=== PATIENT | female | born 1985 | race African-American/Black ===

== ENCOUNTER 2017-12-30 21:24 | Inpatient (IN) | payer MEDICARE ==
[~2017-12-30] VITALS: Ht 167.6 cm; Wt 99.8 kg
--- NOTE | ~2017-12-30 | OP ---
PATIENT NAME: NANCY AVILES MEDICAL RECORD: [id number] LOCATION:[id number] ADMISSION DATE:12/31/17 SURGEON: ANOOP ACUNA MD DATE OF OPERATION: 01/01/2018 PREOPERATIVE DIAGNOSES: 1. Acute appendicitis with abscess. 2. Chronic iron deficiency anemia POSTOPERATIVE DIAGNOSES: PROCEDURE: Laparoscopic appendectomy. SURGEON: Anoop Acuna MD REPORT OF PROCEDURE: The patient's abdomen was prepped and draped in sterile fashion. A cutdown was made on the superior aspect of the umbilicus. 0 Vicryls were placed in the fascia bilaterally and the fascia was incised with a 15-blade. I then bluntly entered the peritoneal cavity and placed a 12-mm Candy port. Under direct visualization, a 5 mm trocar was placed in the left lower quadrant and another was placed in the suprapubic region. The patient had a lot inflammatory changes present in the right lower quadrant. With gentle dissection, I was able to tease these off and were eventually opened up into a small pocket of pus, which was suctioned out and irrigated before there is any spillage. The patient's appendiceal base could be followed down to this inflammation. We eventually were able to dissect this appendix free from the surrounding tissues, which included the right ovary and fallopian tube along with the superior aspect of the rectum. Once we had it mobilized and a window was made at the mesoappendix and base of the appendix was transected at the cecum with a 45 blue load Endo-JAMES stapler. The mesoappendix was then transected with a 45 blue load Endo GI stapler and the appendix was placed into an Endo Catch bag. The area was irrigated out thoroughly with normal saline and care was taken to assure there is no sign of any active bleeding, which there was none. At this point, the insufflation and the appendix were removed. The periumbilical fascia was closed with interrupted 0 Vicryls times 3. The wounds were then irrigated out with normal saline, infused with 10 mL of 0.25% Marcaine with epinephrine. The wounds were then irrigated out with normal saline and infused with 10 mL of 0.25% Marcaine with epinephrine. The skin was closed with running subcutaneous 5-0 Monocryl and then dressed appropriately. COMPLICATIONS: None. CONDITION: Stable. ANESTHESIA: General endotracheal and local. BLOOD LOSS: 30 mL. 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
[2017-12-30] MEDS ORDERED: ACETAMINOPHEN325 MG PO (21:36)
[2017-12-31 00:06] VITALS: BMI 35.6
[2017-12-31 04:45] VITALS: BP 118/57
[2017-12-31 08:52] VITALS: BP 110/64
[2017-12-31 09:21] LABS: ANION GAP 8.3 mmol/L (8-16); CALCIUM 8.3 mg/dL (8.5-10.1); CARBON DIOXIDE 29.4 mmol/L (21.0-32.0); CREATININE - SERUM 1.2 mg/dL (0.6-1.3); POTASSIUM - SERUM 3.7 mmol/L (3.5-5.1)
[2017-12-31 09:34] LABS: HEMATOCRIT 32.5 % (36.0-48.0); HEMOGLOBIN 10.7 g/dL (12-16); LYMPHOCYTES 16.9 % (15-50); MCH 25.8 pg (26.0-34.0); MCHC 32.9 g/dL (31.0-37.0); MCV 78.3 fL (80.0-100.0); NEUTROPHILS 74.1 % (40-80); PLATELET COUNT 351 10x3/uL (130-400); RBC 4.15 10x6/uL (4.00-5.40); RDW 13.7 % (11.5-14.5); WBC 11.1 10x3/uL (4.8-10.8)
[2017-12-31 15:46] VITALS: BP 104/71
[2017-12-31 20:00] VITALS: BP 93/60
[2018-01-01] VITALS (16 sets, daily range): BP systolic 108–126; BP diastolic 54–78; Ht 167.6 cm; Wt 99.8 kg
[2018-01-02 04:00] VITALS: BP 122/69
[2018-01-02 06:10] LABS: BASOPHILS 0.4 % (0-2); EOSINOPHILS 0.3 % (0-7); HEMATOCRIT 29.4 % (36.0-48.0); HEMOGLOBIN 9.5 g/dL (12-16); IMMATURE GRANULOCYTES 0.3 % (0-5); LYMPHOCYTES 23.9 % (15-50); MCHC 32.3 g/dL (31.0-37.0); MEAN PLATELET VOLUME 8.9 fL (7.4-10.4); NEUTROPHILS 66.1 % (40-80); PLATELET COUNT 326 10x3/uL (130-400); RBC 3.66 10x6/uL (4.00-5.40); RDW 14.2 % (11.5-14.5); WBC 10.3 10x3/uL (4.8-10.8)
[2018-01-02 06:12] LABS: MCV 80.3 fL (80.0-100.0)
[2018-01-02 06:27] LABS: ANION GAP 11.6 mmol/L (8-16); CALCIUM 7.8 mg/dL (8.5-10.1); CARBON DIOXIDE 25.1 mmol/L (21.0-32.0); POTASSIUM - SERUM 3.7 mmol/L (3.5-5.1)
[2018-01-02] MEDS ORDERED: HYDROCODON-ACE1 EAC7 PO (08:49)
[2018-01-02] MEDS ORDERED: AUGMENTIN 875-11 TAB PO (08:52)
[2018-01-02 10:10] VITALS: BP 108/67
[2018-01-02 10:18] VITALS: BP 108/67
== END 2018-01-02 12:30 | disposition home or self-care (01) | DRG 340 ==
LOC: D.ER 21:24 → D.MS 22:16 → D.EDHOLD 22:16 → OBSVTIME 22:16 → D.MS 23:31
PROVIDERS: Surgery
PROC: 0DTJ4ZZ Resection of Appendix, Percutaneous Endoscopic Approach (ICD-10-PCS; principal; 2018-01-01)
DX: K35.3 Acute appendicitis with localized peritonitis (principal); D50.9 Iron deficiency anemia, unspecified